=== PATIENT | male | born 1995 | race African-American/Black ===

== ENCOUNTER 2018-09-06 11:42 | Emergency (ER) | payer MEDICAID, OTHER ==
[~2018-09-06] VITALS: Ht 177.8 cm; Wt 66.0 kg
--- NOTE | 2018-09-06 12:16 | NUR ---
TASK RN: PT RESTING IN ROOM WITHOUT DISTRESS. OFFICERS AT BEDSIDE.
[2018-09-06] MEDS ORDERED: L.E.T SOLUTION TP ONE (12:19)
[2018-09-06] MEDS ORDERED: LIDOCAINE 1%-EPI 1:100K, 50ML INFIL ONE (12:30)
[2018-09-06] MEDS ORDERED: MORPHINE SULFATE 4 MG/ML, 1ML IVPush PRN (12:30)
[2018-09-06] MEDS ORDERED: ONDANSETRON 2MG/ML, 2ML IVPush ONE (12:30)
[2018-09-06 12:31] LABS: BASOPHILS # (AUTO) 0.05 x10^3/uL (0-0.3); BASOPHILS % (AUTO) 1 % (0-1); EOSINOPHILS # (AUTO) 0.15 x10^3/uL (0-0.8); EOSINOPHILS % (AUTO) 2 % (1-7); LYMPHOCYTES # (AUTO) 1.36 x10^3/uL (1-6.1); LYMPHOCYTES % (AUTO) 17 % (22-44); MD NO; MEAN CORPUSCULAR HEMOGLOBIN 28.9 pg (27.5-34.5); MEAN CORPUSCULAR VOLUME 87.5 fL (81-97); MEAN PLATELET VOLUME 6.9 fL (7.4-10.4); MONOCYTES # (AUTO) 0.54 x10^3/uL (0-1.4); MONOCYTES % (AUTO) 7 % (2-9); NEUTROPHILS # (AUTO) 5.79 x10^3/uL (1.8-8.0); NEUTROPHILS % (AUTO) 73 % (42-75); PLATELET COUNT 824 x10^3/uL (130-400); RED BLOOD COUNT 3.41 x10^6/uL (4.38-5.82); RED CELL DISTRIBUTION WIDTH 16.2 % (9.4-14.8)
[2018-09-06 12:42] LABS: ALANINE AMINOTRANSFERASE 86 U/L (12-78); ALBUMIN 2.8 g/dL (3.4-5.0); ANION GAP 6 mmol/L (5-15); CALCIUM 9.9 mg/dL (8.5-10.1); CHLORIDE 104 mmol/L (98-107); CREATININE 0.84 mg/dL (0.7-1.3)
[2018-09-06 12:43] LABS: ALKALINE PHOSPHATASE 160 U/L (45-117); BILIRUBIN,TOTAL 0.4 mg/dL (0.2-1.0); TOTAL PROTEIN 8.4 g/dL (6.4-8.2)
--- NOTE | 2018-09-06 12:49 | NUR ---
PT HAD 4 REJI REMOVED FROM 2 WOUNDS. THE RIGHT LATERAL ANTERIOR CHEST WALL WOUND DID NOT HAVE A STAPLE THIS RN COULD VISUALIZE. MD INFORMED AND MD WILL EVALUATE AFTER CT SCAN.
[2018-09-06] MEDS ORDERED: OMNIPAQUE 350 MG/ML, 100ML BOTTLE ONE (13:51)
[2018-09-06] MEDS ORDERED: MORPHINE SULFATE 4 MG/ML, 1ML ONE (13:54)
[2018-09-06] MEDS ORDERED: ONDANSETRON 2MG/ML, 2ML ONE (13:54)
[2018-09-06 14:00] VITALS: BP 119/61
--- NOTE | 2018-09-06 15:34 | NUR ---
SBAR REPORT TO ANDREAS RICHARD AT [facility]
== END 2018-09-06 18:22 | disposition short-term general hospital (02) ==
LOC: ED 13:39
DX: J85.2 Abscess of lung without pneumonia (principal); T81.40XA Infection following a procedure, unspecified, initial encounter; R10.11 Right upper quadrant pain
CPT/HCPCS: 36415; 71260; 74177; 80053; 85025; 96374; 96375; 99285; J2405; Q9967